=== PATIENT | female | born 1995 | race Caucasian/White ===

== ENCOUNTER 2017-10-08 12:33 | Emergency (ER) | payer OTHER ==
[2017-10-08 12:46] VITALS: BP 106/78
--- NOTE | 2017-10-08 13:13 | UC ---
Complaint Female HPI - HPI Summary HPI Summary: This patient is a 22 year old F presenting to [facility] [place] with a chief complaint of frequent urination since 10/02/2017. The patient rates the pain 5/10 in severity. Patient reports dysuria. Patient denies vaginal discharge, vaginal odor, back pain, nausea, vomiting, and fever. She took AZO Defense on 2017 to no effect. Her last infection was about a year ago. She has no concern for an STI. Patient's medications reviewed this visit. No back pain. No other analgesia taken. Patient is sexually active uses oral protocol. - History Of Current Complaint Chief Complaint: UCGU Stated Complaint: FREQUENT URINATION Time Seen by Provider: 10/08/17 12:46 Hx Obtained From: Patient Hx Last Menstrual Period: Onset/Duration: Lasting Days - Since 10/02/2017, Still Present Timing: Constant, Lasting Days - Since 10/02/2017 Severity Initially: Moderate Severity Currently: Moderate Pain Intensity: 5 Pain Scale Used: 0-10 Numeric Associated Signs And Symptoms: Negative: Fever, Back Pain, Vaginal Bleeding/ Discharge, Vaginal Discharge, Nausea, Vomiting(# Of Episodes =) - Allergies/Home Medications Allergies/Adverse Reactions: Allergies Allergy/AdvReac Type Severity Reaction Status Date / Time Sulfa (Sulfonamide Allergy Intermediate Rash Verified 10/08/17 12:47 Antibiotics) Home Medications: Home Medications Desog-E.estradiol/E.estradiol [Kariva 28 Day Tablet] 1 mg PO DAILY 10/08/17 [ History Confirmed 10/08/17] PMH/Surg Hx/FS Hx/Imm Hx Previously Healthy: Yes GI/ History: Other - UTI Other GI/ History: UTI - Surgical History Surgical History: None Surgery Procedure, Year, and Place: denies - Family History Known Family History: Negative: Cardiac Disease, Hypertension, Diabetes - Social History Occupation: Student - [email or web address] Lives: Dormitory/Roommates Alcohol Use: Weekly Substance Use Type: None Smoking Status (MU): Former Smoker Review of Systems Constitutional: Fever Gastrointestinal: Vomiting - Denies, Nausea - Denies Genitourinary: Dysuria, Frequency - Frequent urination, Vaginal/Penile Burning, Vaginal/Penile Discharge - Denies, Other - Denies vaginal odor. Musculoskeletal: Other: - Denies back pain. All Other Systems Reviewed And Are Negative: Yes Physical Exam - Summary Physical Exam Summary: Vital Signs Reviewed: Yes A+Ox3, no distress Eyes: Conjunctiva Clear ENT: Hearing grossly normal neck: supple Respiratory: Positive: No respiratory distress, No accessory muscle use CTA throughout no w/r no increased wob Cardiovascular: skin color reflect adequate perfusion RRR nl s1 s2 no m/r abd: soft + BS no guarding, no rebound no CVA Musculoskeletal Exam: MOTA x 4 without difficulty Neurological: Positive: Alert, ambulatory without difficulty Psychological: Positive: Normal Response To Family Skin: Positive: no rash, no ecchymosis Triage Information Reviewed: Yes Vital Signs: Initial Vital Signs Temp 98.9 F 10/08/17 12:42 Pulse 75 10/08/17 12:42 Resp 83 10/08/17 12:42 BP 106/78 10/08/17 12:42 Pulse Ox 99 10/08/17 12:42 Vital Signs Reviewed: Yes Complaint Female Dx - Course Course Of Treatment: Patient presents with progressive dysuria urgency and frequency. Patient denies any vaginal discharge itching or odor. No belly pain. No back pain. Vital signs stable. Exam is non-concerning. Patient with urinalysis consistent with infection. We'll start Keflex. We'll give Pyridium. Urine will be cultured. Patient encouraged him plenty of fluids. Motrin Tylenol. Denies alcohol. Return precautions. Patient comfortable in agreement with plan. - Differential Dx/Diagnosis Provider Diagnoses: UTI Discharge - Sign-Out/Discharge Documenting (check all that apply): Patient Departure All imaging exams completed and their final reports reviewed: No Studies - Discharge Plan Condition: Stable Disposition: HOME Prescriptions: Cephalexin CAP* [Keflex 500 CAP*] 500 mg PO BID #14 cap Phenazopyridine TAB* [Pyridium 100 mg TAB*] 100 mg PO TID PRN #9 tab PRN Reason: burning with urination Patient Education Materials: Urinary Tract Infection in Women (ED) Referrals: [facility] [Outside] No Primary Care Phys,NOPCP [Primary Care Provider] - Additional Instructions: - stay well hydrated - drink plenty of non-alcoholic, non caffinated beverages - your urine will be further tested - if you require any changes to your treatment, we will contact you - this usually take 2 days - Contact your primary doctor to arrange a follow-up appointment next week. Contact your doctor or return with questions or concerns - Take your antibiotics exactly as prescribed until gone - Take pyridium as prescribed for discomfort. This will make your urine blaze orange - this is normal - Okay to alternate ibuprofen (Advil, Motrin) and Tylenol every 3 hours for pain. Take with food - Call your doctor or return with questions or concerns - Billing Disposition and Condition Condition: STABLE Disposition: Home - Attestation Statements Document Initiated by Scribe: Yes Documenting Scribe: Sohail Alcala Provider For Whom Sreee is Documenting (Include Credential): Laxmi Oliveira MD Scribe Attestation: Sohail Alvarez, scribed for Laxmi Oliveira MD on 10/10/17 at 1111. Scribe Documentation Reviewed: Yes Provider Attestation: The documentation as recorded by the Sohail vazquez accurately reflects the service I personally performed and the decisions made by me, Laxmi Oliveira MD
== END 2017-10-08 13:15 | disposition home or self-care (01) ==
LOC: UCEAST 12:33
DX: N39.0 Urinary tract infection, site not specified (principal)
CPT/HCPCS: 81003; 84702; 87077; 87086; 87186; 99202; G0463